=== PATIENT | female | born 1960 | race Caucasian/White ===

== ENCOUNTER 2021-07-01 19:13 | Emergency (ER) | payer OTHER, BC ==
[~2021-07-01] VITALS: Ht 170.2 cm; Wt 60.3 kg
[2021-07-01] MEDS ORDERED: AMOCLA875 PO (20:30)
== END 2021-07-01 20:44 | disposition home or self-care (01) ==
LOC: EDBD 19:13 → ER 19:13
DX: S61.051A Open bite of right thumb without damage to nail, initial encounter (principal); W54.0XXA Bitten by dog, initial encounter; Z88.2 Allergy status to sulfonamides
CPT/HCPCS: 12001; 73120; 99283-25; A9270